=== PATIENT | female | born 1990 | race Caucasian/White ===

== ENCOUNTER 2018-06-06 14:10 | Emergency (ER) | payer OTHER ==
[~2018-06-06] VITALS: Ht 172.7 cm; Wt 80.0 kg
[2018-06-06 14:23] VITALS: BP 148/66
[2018-06-06] MEDS ORDERED: KETOROLAC TROMETHAMINE 10 MG TABLET PO ONE (14:45)
[2018-06-06] MEDS ORDERED: CYCLOBENZAPRINE HCL 10 MG TABLET PO ONE (14:45)
== END 2018-06-06 16:41 | disposition home or self-care (01) ==
LOC: EMS 14:11
DX: S39.012A Strain of muscle, fascia and tendon of lower back, initial encounter (principal); I10 Essential (primary) hypertension; V43.53XA Car driver injured in collision with pick-up truck in traffic accident, initial encounter; Y93.89 Activity, other specified; Y92.488 Other paved roadways as the place of occurrence of the external cause; Y99.8 Other external cause status
CPT/HCPCS: 72100